=== PATIENT | female | born 2000 | race American Indian/Alaskan Native ===

== ENCOUNTER 2019-04-11 10:17 | Emergency (ER) | payer OTHER ==
[2019-04-11 10:28] VITALS: BP 125/66
[2019-04-11] MEDS ORDERED: IBUPROFEN 800 MG TAB PO ONE (11:13)
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
--- NOTE | 2019-04-11 12:08 | XRay Report ---
Right knee 3 views INDICATION: Right knee pain after injury IMPRESSION: No fracture or subluxation of the right knee is identified. Signer Name: Jadon Torrez MD Signed: 04/11/2019 12:04 PM Workstation Name: [id number]
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
== END 2019-04-11 13:19 | disposition home or self-care (01) ==
LOC: ED 10:17
DX: S16.1XXA Strain of muscle, fascia and tendon at neck level, initial encounter (principal); S80.01XA Contusion of right knee, initial encounter; V49.59XA Passenger injured in collision with other motor vehicles in traffic accident, initial encounter; Y93.89 Activity, other specified; Y92.410 Unspecified street and highway as the place of occurrence of the external cause; Y99.8 Other external cause status
CPT/HCPCS: 72040

== ENCOUNTER 2021-10-21 19:14 | Emergency (ER) | payer OTHER ==
[2021-10-21 19:26] VITALS: BP 117/65
== END 2021-10-22 04:45 | disposition left against medical advice (07) ==
LOC: ED 19:14
DX: R52 Pain, unspecified (principal); Z53.21 Procedure and treatment not carried out due to patient leaving prior to being seen by health care provider